=== PATIENT | male | born 1995 | race Caucasian/White ===

== ENCOUNTER 2016-12-30 15:55 | Emergency (ER) | payer OTHER ==
[2016-12-30] MEDS ORDERED: LORazepam 2 MG/ML INJ ONE (16:02)
--- NOTE | 2016-12-30 16:06 | EDPHY ---
H & P Time Seen by Provider: 12/30/16 15:59 HPI/ROS: CHIEF COMPLAINT: Seizure, hematoma, limited trauma activation HISTORY OF PRESENT ILLNESS: The patient is brought in by paramedics as a limited trauma activation after he sustained an unwitnessed seizure resulting in head trauma, headache and vomiting. The patient has a history of seizure disorder and currently takes Keppra. He reports a seizure frequency of approximately once per month. The patient reportedly did have his Keppra recently increased by his neurologist Dr. Maldonado. The patient denies any anticoagulant use. The patient denies any focal numbness, weakness, neck pain or additional acute complaints. The patient last saw his neurologist approximately 1 month ago. The patient denies any history of fever, cough, congestion, vomiting or other additional illness. REVIEW OF SYSTEMS: A comprehensive 10 point review of systems is otherwise negative aside from elements mentioned in the history of present illness. Source: Patient Exam Limitations: No limitations - Medical/Surgical History Other PMH: Seizures, Drug Abuse - Family History Significant Family History: No pertinent family hx - Social History Smoking Status: Current some day smoker Alcohol Use: Other - Physical Exam Exam: General Appearance: Alert, no distress Head: Large frontal scalp hematoma, superficial abrasions Eyes: Pupils equal, round, reactive ENT, Mouth: No hemotympanum, no oral trauma Neck: Nontender, trachea midline Respiratory: No chest wall tender, subcutaneous air, lungs clear bilaterally Cardiovascular: Regular rate and rhythm Abdomen: Abdomen is soft and nontender, pelvis stable Skin: No lacerations, No abrasion Back: No midline T/L/S pain Extremities: Nontender, full range of motion Neurological: A&Ox2, slightly confused, mildly disoriented, normal motor function, normal sensory exam Constitutional: Initial Vital Signs Temperature (C) 36.8 C 12/30/16 16:23 Heart Rate 78 12/30/16 16:23 Respiratory Rate 14 12/30/16 16:23 Blood Pressure 111/68 12/30/16 16:23 O2 Sat (%) 100 12/30/16 16:23 O2 Delivery Mode Room Air Allergies/Adverse Reactions: No Known Allergies Allergy (Unverified 10/24/15 16:19) Home Medications: Medication Instructions Recorded levETIRAcetam [Keppra] 500 mg PO BID #60 tab 10/24/15 Medical Decision Making - Diagnostics Imaging Results: Imaging Impressions Head CT 12/30/16 15:58 Impression: 1. No acute fracture or evidence of acute intracranial injury. 2. Left frontal scalp hematoma. Findings communicated to Emergency Department physician, Dr. Angel Leroy on December 30, 2016 at 1711 hours. ED Course/Re-evaluation: The patient presents to the ED after seizure. Given the size of his hematoma, complaints of headache and his mild postictal state he was taken for a CT scan of his brain which demonstrated no evidence of an intracranial hemorrhage or skull fracture. The patient return was placed on a monitor. The patient underwent several examinations by myself over a 2 hour period. The patient continues to be slightly confused. 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 The patient has been able to contact his friend Aditya who will take him back to his mother's house in [place]. I re-evaluated the patient at 7:15 p.m.. He is ambulatory and in no acute distress. He is now much more oriented in his postictal state has improved. The patient will be discharged home and instructed not to drive. He should follow up with his primary neurologist Dr. Maldonado for recheck this week. Differential Diagnosis: Differential diagnosis considered includes intracranial hemorrhage, skull fracture, seizure, status epilepticus - Data Points Laboratory Results: Laboratory Results 12/30/16 17:12 12/30/16 17:12 12/30/16 12/30/16 12/30/16 17:12 17:12 17:12 WBC 23.91 10^3/uL H 10^3/uL (3.80-9.50) RBC 5.20 10^6/uL 10^6/uL (4.40-6.38) Hgb 17.4 g/dL g/dL (13.7-17.5) Hct 47.0 % % (40.0-51.0) MCV 90.4 fL fL (81.5-99.8) MCH 33.5 pg pg (27.9-34.1) MCHC 37.0 g/dL H g/dL (32.4-36.7) RDW 11.6 % % (11.5-15.2) Plt Count 276 10^3/uL 10^3/uL (150-400) MPV 8.8 fL fL (8.7-11.7) Neut % (Auto) 84.8 % H % (39.3-74.2) Lymph % (Auto) 7.1 % L % (15.0-45.0) [place] % (Auto) 7.0 % % (4.5-13.0) Eos % (Auto) 0.0 % L % (0.6-7.6) Baso % (Auto) 0.4 % % (0.3-1.7) Nucleat RBC Rel Count 0.0 % % (0.0-0.2) Absolute Neuts (auto) 20.29 10^3/uL H 10^3/uL (1.70-6.50) Absolute Lymphs (auto) 1.69 10^3/uL 10^3/uL (1.00-3.00) Absolute Monos (auto) 1.67 10^3/uL H 10^3/uL (0.30-0.80) Absolute Eos (auto) 0.00 10^3/uL L 10^3/uL (0.03-0.40) Absolute Basos (auto) 0.09 10^3/uL 10^3/uL (0.02-0.10) Absolute Nucleated RBC 0.00 10^3/uL 10^3/uL (0-0.01) Immature Gran % 0.7 % % (0.0-1.1) Immature Gran # 0.17 10^3/uL H 10^3/uL (0.00-0.10) Sodium 144 mEq/L mEq/L (134-144) Potassium 3.6 mEq/L mEq/L (3.5-5.2) Chloride 103 mEq/L mEq/L (97-110) Carbon Dioxide 23 mEq/l mEq/l (22-31) Anion Gap 18 mEq/L H mEq/L (8-16) BUN 16 mg/dL mg/dL (7-23) Creatinine 1.0 mg/dL mg/dL (0.7-1.3) Estimated GFR > 60 Glucose 106 mg/dL H mg/dL (70-100) Calcium 10.4 mg/dL mg/dL (8.5-10.4) Levetiracetam Pending Medications Given: Discontinued Medications Lorazepam (Ativan Injection) 1 mg IVP EDNOW ONE Stop: 12/30/16 18:23 Last Admin: 12/30/16 18:31 Dose: 1 mg Departure - Departure Disposition: Home, Routine, Self-Care Clinical Impression: Seizure, Scalp contusion, Concussion Condition: Good Instructions: Recurrent Seizures in Adults (ED), Hematoma (ED) Additional Instructions: 1. No driving, dangerous activities such as riding a ski lift, swimming in a pool or other behavior that could put you or someone else at risk in the event of a recurrent seizure. You will need to be cleared by a neurologist to resume these activities. 2. Please return to the ED for recurrent seizure, headache, numbness, weakness, altered mental status or other concerns. 3. Please follow up with neurologist you have been referred to this week to schedule a follow-up appointment. I have sent a Keppra level which is pending at this point time. 4. Concussion aftercare instructions as directed Referrals: Dougie Maldonado MD [Medical Doctor] - As per Instructions
[2016-12-30] MEDS ORDERED: ONDANSETRON 4 MG/2 ML VIAL ONE (16:55)
[2016-12-30 17:18] LABS: % IMMATURE GRANULYOCYTES 0.7 % (0.0-1.1); ABSOLUTE IMMATURE GRANULOCYTES 0.17 10^3/uL (0.00-0.10); ADD DIFF? NO; ADD MORPH? NO; ADD SCAN? NO; ATYPICAL LYMPHOCYTE FLAG 0 (0-99); FRAGMENT RBC FLAG 0 (0-99); HEMOGLOBIN 17.4 g/dL (13.7-17.5); LEFT SHIFT FLG 10 (0-99); LIPEMIA HEMOLYSIS FLAG 90 (0-99); MEAN CELL HEMOGLOBIN 33.5 pg (27.9-34.1); MEAN CELL VOLUME 90.4 fL (81.5-99.8); MEAN PLATELET VOLUME 8.8 fL (8.7-11.7); PLATELET CLUMPS FLAG 10 (0-99); PLATELET COUNT 276 10^3/uL (150-400); RED CELL DISTRIBUTION WIDTH 11.6 % (11.5-15.2)
[2016-12-30 17:47] LABS: ANION GAP 18 mEq/L (8-16); CALCIUM 10.4 mg/dL (8.5-10.4); CARBON DIOXIDE 23 mEq/l (22-31); CHLORIDE 103 mEq/L (97-110); GLOMERULAR FILTRATION RATE > 60; GLUCOSE 106 mg/dL (70-100); POTASSIUM 3.6 mEq/L (3.5-5.2); SODIUM 144 mEq/L (134-144)
[2016-12-30 18:12] VITALS: TEMP 98.2
[2016-12-30] MEDS ORDERED: LORazepam 2 MG/ML INJ IVP ONE (18:22)
[2016-12-30 18:38] VITALS: RESP 16
[2016-12-30 19:33] VITALS: BP 123/66; PULSE 82; O2SAT 97
== END 2016-12-30 19:33 | disposition home or self-care (01) ==
LOC: EDUNIT#
DX: S06.0X0A Concussion without loss of consciousness, initial encounter (principal); S00.03XA Contusion of scalp, initial encounter; G40.909 Epilepsy, unspecified, not intractable, without status epilepticus; F17.200 Nicotine dependence, unspecified, uncomplicated; X58.XXXA Exposure to other specified factors, initial encounter
CPT/HCPCS: 80177-90; 96374; J2060; J2405